=== PATIENT | male | born 1965 | race Caucasian/White ===

== ENCOUNTER 2019-01-13 19:10 | Emergency (ER) | payer MEDICAID ==
[2019-01-13] MEDS ORDERED: Take Home: Clindamycin HCl 150 MG Cap, 6 Cap Pack PO ONE (19:34)
--- NOTE | 2019-01-14 02:45 | EDM.PDOC ---
ED HPI GENERAL MEDICAL PROBLEM - General Chief Complaint: ENT Problem Stated Complaint: TOOTH Time Seen by Provider: 01/13/19 19:10 Source of Information: Reports: Patient History Limitations: Reports: No Limitations - History of Present Illness INITIAL COMMENTS - FREE TEXT/NARRATIVE: Pt. presents to ER with complaints of dental pain. He has a history of poor dentition and has pain to L lower premolar. Denies any facial swelling. No fever or chills. No nausea, vomiting, or headache. No difficulty with neck movement. No chest pain or shortness of breath. Pt. states that he does not routinely go to a dentist. 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 Left Lower Jaw Pain Score (Numeric/FACES): 4 - Related Data Allergies Allergy/AdvReac Type Severity Reaction Status Date / Time amoxicillin Allergy Facial Verified 01/13/19 19:33 Swelling Home Meds: Home Meds Lisinopril/Hydrochlorothiazide [Lisinopril-Hctz 20-25 mg Tab] 100 mg PO DAILY [History] Metoprolol Succinate 100 mg PO DAILY 01/13/19 [History] Venlafaxine [Effexor] 150 mg PO DAILY 01/13/19 [History] risperiDONE 4 mg PO DAILY 01/13/19 [History] Past Medical History - Past Health History Medical/Surgical History: Denies Medical/Surgical History Social & Family History - Tobacco Use Smoking Status *Q: Current Every Day Smoker Years of Tobacco use: 35 Packs/Tins Daily: 1 ED ROS GENERAL - Review of Systems Review Of Systems: See Below Constitutional: Reports: No Symptoms HEENT: Reports: Dental Pain Respiratory: Reports: No Symptoms Cardiovascular: Reports: No Symptoms Endocrine: Reports: No Symptoms GI/Abdominal: Reports: No Symptoms : Reports: No Symptoms Musculoskeletal: Reports: No Symptoms Skin: Reports: No Symptoms Neurological: Reports: No Symptoms Psychiatric: Reports: No Symptoms Hematologic/Lymphatic: Reports: No Symptoms Immunologic: Reports: No Symptoms ED EXAM, GENERAL - Physical Exam Exam: See Below Exam Limited By: No Limitations General Appearance: Alert, WD/WN, No Apparent Distress Nose: Normal Inspection, Normal Mucosa, No Blood Throat/Mouth: Normal Lips, Other (missing most of his teeth. Several teeth in area of pain are absent/filled with caries.) Neck: Normal Inspection, Supple, Non-Tender, Full Range of Motion Respiratory/Chest: No Respiratory Distress, Lungs Clear, Normal Breath Sounds, No Accessory Muscle Use, Chest Non-Tender Cardiovascular: Normal Peripheral Pulses, Regular Rate, Rhythm, No Edema, No JVD Extremities: Normal Inspection, Normal Range of Motion, Non-Tender, No Pedal Edema, Normal Capillary Refill Course - Vital Signs Last Recorded V/S: Last Vital Signs Temp 37.2 C 01/13/19 19:40 Pulse 105 H 01/13/19 19:40 Resp 14 01/13/19 19:40 BP 194/96 H 01/13/19 19:40 Pulse Ox 99 01/13/19 19:40 - Orders/Labs/Meds Meds: Medications Discontinued Medications Generic Name Dose Route Start Last Admin Trade Name Scottie PRN Reason Stop Dose Admin Clindamycin HCl 2 packet 01/13/19 19:34 01/13/19 19:43 Take Home: Clindamycin Hcl 150 Mg, 6 Cap Pack PO 01/13/19 19:35 2 packet ONETIME ONE Administration Departure - Departure Time of Disposition: 19:45 Disposition: Home, Self-Care 01 Condition: Good Clinical Impression: Dental infection - Discharge Information Instructions: Dental Abscess, [id number], Clindamycin capsules, Probiotics Referrals: Dawn Oleary, [Primary Care Provider] - Forms: ED Department Discharge Additional Instructions: clindamycin 150mg 2 tabs every 6 hours for 10 days Follow-up with dentist JUSTINO Aleve or ibuprofen as needed for discomfort - Assessment/Plan Plan: clindamycin 150mg 2 tabs every 6 hours for 10 days Follow-up with dentist JUSTINO Aleve or ibuprofen as needed for discomfort
== END 2019-01-13 19:45 | disposition home or self-care (01) ==
LOC: VM.ED 19:10
DX: K04.7 Periapical abscess without sinus (principal); F17.210 Nicotine dependence, cigarettes, uncomplicated; Z79.899 Other long term (current) drug therapy; Z88.1 Allergy status to other antibiotic agents
CPT/HCPCS: 99282; A9270

== ENCOUNTER 2021-09-27 12:51 | Emergency (ER) | payer BC, MEDICAID ==
[2021-09-27 13:40] LABS: ANION GAP 12.5 mmol/L (5-15); CHLORIDE,CL 104 mmol/L (98-107); SODIUM,NA 141 mmol/L (136-145)
== END 2021-09-27 14:39 | disposition home or self-care (01) ==
LOC: VM.ED 12:51
DX: R53.1 Weakness (principal); Z88.0 Allergy status to penicillin; Z79.82 Long term (current) use of aspirin; Z79.899 Other long term (current) drug therapy
CPT/HCPCS: 36415; 80048; 85025; 93005; 93010; 99284; 99285-25

== ENCOUNTER 2021-10-18 08:04 | Emergency (ER) | payer BC ==
[2021-10-18 08:48] LABS: CHLORIDE,CL 102 mmol/L (98-107); SODIUM,NA 137 mmol/L (136-145)
[2021-10-18 08:49] LABS: ANION GAP 10.4 mmol/L (5-15)
== END 2021-10-18 10:00 | disposition home or self-care (01) ==
LOC: VM.ED 08:04
DX: R53.1 Weakness (principal); E78.00 Pure hypercholesterolemia, unspecified; I10 Essential (primary) hypertension; Z88.0 Allergy status to penicillin; Z79.82 Long term (current) use of aspirin; Z79.899 Other long term (current) drug therapy
CPT/HCPCS: 36415; 71046; 80053; 81001; 83735; 84484; 85025; 86140; 93010; 99284; 99284-25

== ENCOUNTER 2022-01-03 07:21 | Emergency (ER) | payer BC ==
[2022-01-03 07:56] LABS: PTT,PARTIAL THROMBOPLSTIN TIME 23.4 SEC (20.5-30.9)
[2022-01-03 08:01] LABS: CHLORIDE,CL 106 mmol/L (98-107); SODIUM,NA 142 mmol/L (136-145)
[2022-01-03 08:02] LABS: ANION GAP 11.4 mmol/L (5-15)
[2022-01-03] MEDS: Ondansetron 4 MG/2 ML SDV IVPUSH ONE (08:55)
[2022-01-03] MEDS: Morphine 2 MG/ML SYRINGE IVPUSH ONE (08:58)
== END 2022-01-03 09:16 | disposition short-term general hospital (02) ==
LOC: VM.ED 07:21
DX: S11.81XA Laceration without foreign body of other specified part of neck, initial encounter (principal); C41.9 Malignant neoplasm of bone and articular cartilage, unspecified; E78.00 Pure hypercholesterolemia, unspecified; I10 Essential (primary) hypertension; Z88.0 Allergy status to penicillin; Z79.899 Other long term (current) drug therapy; Z23 Encounter for immunization; Z20.822 Contact with and (suspected) exposure to COVID-19; X78.1XXA Intentional self-harm by knife, initial encounter
CPT/HCPCS: 36415; 70490; 80053; 85025; 85610; 85730; 87635; 96374; 96375; 99285; J2270; J2405; U0002

== ENCOUNTER 2023-08-06 15:55 | Emergency (ER) | payer MEDICAID, MEDICARE ==
[2023-08-06] MEDS ORDERED: Sodium Chloride 0.9% 10 ML Syringe FLUSH PRN (15:59)
[2023-08-06 16:24] LABS: BASOPHILS ABSOLUTE AUTO 0.1 x10^3/uL (0.0-0.2); BASOPHILS PERCENT AUTO 1.2 % (0.2-1.2); EOSINOPHILS ABSOLUTE AUTO 0.4 x10^3/uL (0.0-0.5); EOSINOPHILS PERCENT AUTO 5.1 % (0.0-4.0); HEMATOCRIT 37.3 % (40.0-52.0); HEMOGLOBIN 12.4 g/dL (14.0-18.0); IMMATURE GRAN ABSOLUTE AUTO 0.02 x10^3/uL (0.00-0.07); LYMPHOCYTES ABSOLUTE AUTO 1.5 x10^3/uL (1.0-4.8); LYMPHOCYTES PERCENT AUTO 18.4 % (25.0-50.0); MEAN CORPUSCULAR HEMOGLOBIN 30.8 pg (26.0-32.0); MEAN CORPUSCULAR HGB CONC 33.2 g/dL (32.0-36.0); MEAN CORPUSCULAR VOLUME 92.8 fL (78.0-93.0); MONOCYTES ABSOLUTE AUTO 0.8 x10^3/uL (0.0-0.8); MONOCYTES PERCENT AUTO 9.8 % (2.0-11.0); NEUTROPHILS ABSOLUTE AUTO 5.3 x10^3/uL (1.8-7.7); NEUTROPHILS PERCENT AUTO 65.3 % (50.0-80.0); PLATELET COUNT,PLT 256 x10^3/uL (130-400); RED BLOOD CELL COUNT 4.02 x10^6/uL (4.5-6.0); WHITE BLOOD CELL COUNT,WBC 8.1 x10^3/uL (4.0-10.0)
[2023-08-06 16:42] LABS: LACTIC ACID 1.8 mmol/L (0.4-2.0)
[2023-08-06 16:44] LABS: INR 0.9 (0.9-1.1); PROTHROMBIN TIME 10.2 SEC (9.5-12.2); PTT,PARTIAL THROMBOPLSTIN TIME 26.5 SEC (23.6-33.6)
[2023-08-06 16:44] LABS: APPEARANCE,URINE CLEAR (CLEAR); BILIRUBIN,URINE NEGATIVE (NEGATIVE); COLOR,URINE DARK YELLOW (YELLOW); GLUCOSE,URINE NEGATIVE (NEGATIVE); KETONES,URINE NEGATIVE (NEGATIVE); LEUKOCYTE ESTERASE,URINE NEGATIVE (NEGATIVE); NITRITE,URINE NEGATIVE (NEGATIVE); OCCULT BLOOD,URINE NEGATIVE (NEGATIVE); PH,URINE 5.5 (5.0-8.0); PROTEIN,URINE 30 mg/dL (NEGATIVE); UROBILINOGEN,URINE 0.2 EU/dL (0.2)
[2023-08-06 16:46] LABS: BACTERIA,URINE OCCASIONAL /HPF (NOT SEEN); MUCUS,URINE OCCASIONAL /LPF (NOT SEEN); RBC,URINE 0-5 /HPF (NOT SEEN); WBC,URINE 0-5 /HPF (NOT SEEN)
[2023-08-06 16:48] LABS: AMPHETAMINES SCREEN, URINE NEGATIVE (NEGATIVE); BARBITURATE SCREEN,URINE NEGATIVE (NEGATIVE); BENZODIAZEPINES SCREEN,URINE POSITIVE (NEGATIVE); BUPRENORPHINE SCREEN,URINE NEGATIVE (NEGATIVE); COCAINE METABOLITES,URINE NEGATIVE (NEGATIVE); METHADONE SCREEN, URINE NEGATIVE (NEGATIVE); METHAMPHETAMINE SCREEN, URINE NEGATIVE (NEGATIVE); OXYCODONE SCREEN,URINE NEGATIVE (NEGATIVE); PCP SCREEN,URINE NEGATIVE (NEGATIVE); THC SCREEN,URINE 50 NG/ML NEGATIVE (NEGATIVE)
[2023-08-06 16:49] LABS: A/G RATIO 0.94; ALANINE AMINOTRANSFERASE,ALT 23 U/L (16-63); ALBUMIN 3.3 g/dL (3.4-5.0); ALKALINE PHOSPHATASE 111 U/L (46-116); ANION GAP 12.5 mmol/L (5-15); ASPARTATE AMNIOTRANSFERASE,AST 20 U/L (15-37); BILIRUBIN TOTAL 0.2 mg/dL (0.2-1.0); BLOOD UREA NITROGEN,BUN 13 mg/dL (7-18); C-REACTIVE PROTEIN 0.77 mg/dL (<=0.50); CALCIUM 9.2 mg/dL (8.5-10.1); CARBON DIOXIDE,CO2 31 mmol/L (21-32); CHLORIDE,CL 105 mmol/L (98-107); CREATININE 1.1 mg/dL (0.70-1.30); ESTIMATED GFR 77 mL/min (>=60); ETHANOL BLOOD MEDICAL < 3 mg/dL (0-3); GLUCOSE RANDOM 155 mg/dL (70-99); MAGNESIUM 1.9 mg/dL (1.8-2.4); POTASSIUM,K 3.5 mmol/L (3.5-5.1); PROTEIN TOTAL,TP 6.8 g/dL (6.4-8.2); SODIUM,NA 145 mmol/L (136-145); TSH ULTRASENSITIVE 2.868 uIU/mL (0.358-3.74)
[2023-08-06] MEDS ORDERED: Sodium Chloride 0.9% 1,000 ML IV ONE (17:01)
[2023-08-06] MEDS ORDERED: Iopamidol 755 Mg/ML 100 ML Bottle IVPUSH ONE (17:17)
== END 2023-08-06 19:40 ==
LOC: VM.ED 15:55
DX: R55 Syncope and collapse (principal); E86.0 Dehydration; I10 Essential (primary) hypertension; Z88.0 Allergy status to penicillin; Z88.8 Allergy status to other drugs, medicaments and biological substances; Z79.899 Other long term (current) drug therapy; W01.198A Fall on same level from slipping, tripping and stumbling with subsequent striking against other object, initial encounter
CPT/HCPCS: 36415; 70496; 71045; 80053; 80305-QW; 80307; 81001; 82140; 83605; 83735; 84443; 84484; 85025; 85610; 85730; 86140; 93005; 96360; 99285-25; J7030; Q9967

== ENCOUNTER 2023-08-26 10:02 | Emergency (ER) | payer MEDICARE, MEDICAID ==
[2023-08-26] MEDS ORDERED: Sodium Chloride 0.9% 10 ML Syringe FLUSH PRN (10:16)
[2023-08-26 10:30] LABS: BASOPHILS ABSOLUTE AUTO 0.1 x10^3/uL (0.0-0.2); BASOPHILS PERCENT AUTO 0.7 % (0.2-1.2); EOSINOPHILS ABSOLUTE AUTO 0.2 x10^3/uL (0.0-0.5); EOSINOPHILS PERCENT AUTO 2.1 % (0.0-4.0); HEMOGLOBIN 12.1 g/dL (14.0-18.0); IMMATURE GRAN ABSOLUTE AUTO 0.01 x10^3/uL (0.00-0.07); LYMPHOCYTES ABSOLUTE AUTO 0.8 x10^3/uL (1.0-4.8); LYMPHOCYTES PERCENT AUTO 9.9 % (25.0-50.0); MEAN CORPUSCULAR HEMOGLOBIN 29.8 pg (26.0-32.0); MEAN CORPUSCULAR HGB CONC 33.6 g/dL (32.0-36.0); MEAN CORPUSCULAR VOLUME 88.7 fL (78.0-93.0); MONOCYTES PERCENT AUTO 12.1 % (2.0-11.0); NEUTROPHILS ABSOLUTE AUTO 6.3 x10^3/uL (1.8-7.7); NEUTROPHILS PERCENT AUTO 75.1 % (50.0-80.0); PLATELET COUNT,PLT 185 x10^3/uL (130-400); RED BLOOD CELL COUNT 4.06 x10^6/uL (4.5-6.0); WHITE BLOOD CELL COUNT,WBC 8.4 x10^3/uL (4.0-10.0)
[2023-08-26] MEDS ORDERED: Acetaminophen 500 MG Tab PO ONE (10:44)
[2023-08-26 10:50] LABS: ALANINE AMINOTRANSFERASE,ALT 18 U/L (16-63); ALBUMIN 3.6 g/dL (3.4-5.0); ALKALINE PHOSPHATASE 112 U/L (46-116); ASPARTATE AMNIOTRANSFERASE,AST 17 U/L (15-37); BILIRUBIN TOTAL 0.6 mg/dL (0.2-1.0); BLOOD UREA NITROGEN,BUN 14 mg/dL (7-18); C-REACTIVE PROTEIN 5.63 mg/dL (<=0.50); CALCIUM 9.2 mg/dL (8.5-10.1); CARBON DIOXIDE,CO2 25 mmol/L (21-32); CHLORIDE,CL 104 mmol/L (98-107); GLUCOSE RANDOM 133 mg/dL (70-99); MAGNESIUM 1.7 mg/dL (1.8-2.4); POTASSIUM,K 3.2 mmol/L (3.5-5.1); PROTEIN TOTAL,TP 7.6 g/dL (6.4-8.2); SODIUM,NA 143 mmol/L (136-145)
[2023-08-26 10:51] LABS: ANION GAP 17.2 mmol/L (5-15); ESTIMATED GFR 86 mL/min (>=60)
[2023-08-26 10:53] LABS: LACTIC ACID 0.9 mmol/L (0.4-2.0); PROTHROMBIN TIME 11.1 SEC (9.5-12.2); PTT,PARTIAL THROMBOPLSTIN TIME 29.8 SEC (23.6-33.6)
[2023-08-26 10:55] LABS: APPEARANCE,URINE CLEAR (CLEAR); BILIRUBIN,URINE NEGATIVE (NEGATIVE); COLOR,URINE YELLOW (YELLOW); GLUCOSE,URINE NEGATIVE (NEGATIVE); KETONES,URINE 40 mg/dL (NEGATIVE); LEUKOCYTE ESTERASE,URINE NEGATIVE (NEGATIVE); NITRITE,URINE NEGATIVE (NEGATIVE); OCCULT BLOOD,URINE TRACE-INTACT (NEGATIVE); PROTEIN,URINE 30 mg/dL (NEGATIVE); UROBILINOGEN,URINE 0.2 EU/dL (0.2)
[2023-08-26 10:58] LABS: RBC,URINE 0-5 /HPF (NOT SEEN)
[2023-08-26 10:59] LABS: BACTERIA,URINE OCCASIONAL /HPF (NOT SEEN); MUCUS,URINE OCCASIONAL /LPF (NOT SEEN); WBC,URINE 0-5 /HPF (NOT SEEN)
[2023-08-26 11:20] LABS: CORONAVIRUS COVID-19 NAA POSITIVE (NEGATIVE); INFLUENZA A NAA NEGATIVE (NEGATIVE); INFLUENZA B NAA NEGATIVE (NEGATIVE); RESPIRATORY SYNCYTIAL VIR NAA NEGATIVE (NEGATIVE)
[2023-08-26] MEDS ORDERED: Iopamidol 755 Mg/ML 100 ML Bottle IVPUSH ONE (11:25)
[2023-08-26] MEDS ORDERED: Lactated Ringers 1,000 ML IV ONE (11:38)
[2023-08-26] MEDS ORDERED: Nirmatrelvir/Ritonavir 300 MG/100 MG Dose Pack PO SCH (12:15)
== END 2023-08-26 13:11 | disposition home or self-care (01) ==
LOC: VM.ED 10:02
DX: U07.1 COVID-19 (principal); I10 Essential (primary) hypertension; E78.00 Pure hypercholesterolemia, unspecified; Z79.899 Other long term (current) drug therapy; Z88.0 Allergy status to penicillin; Z88.1 Allergy status to other antibiotic agents; Z88.8 Allergy status to other drugs, medicaments and biological substances
CPT/HCPCS: 0241U; 36415; 71045; 71275; 80053; 81001; 83605; 83735; 85025; 85379; 85610; 85730; 86140; 87040; 93005; 96360; 99284-25; A9270-GY; J7120; Q9967

== ENCOUNTER 2023-08-31 17:39 | Observation (INO) | payer MEDICARE, MEDICAID ==
[2023-08-31] MEDS ORDERED: Sodium Chloride 0.9% 10 ML Syringe FLUSH PRN (17:47)
[2023-08-31 18:11] LABS: BASOPHILS ABSOLUTE AUTO 0.1 x10^3/uL (0.0-0.2); BASOPHILS PERCENT AUTO 0.9 % (0.2-1.2); EOSINOPHILS ABSOLUTE AUTO 0.5 x10^3/uL (0.0-0.5); EOSINOPHILS PERCENT AUTO 6.6 % (0.0-4.0); HEMATOCRIT 34.2 % (40.0-52.0); HEMOGLOBIN 11.4 g/dL (14.0-18.0); IMMATURE GRAN ABSOLUTE AUTO 0.01 x10^3/uL (0.00-0.07); LYMPHOCYTES ABSOLUTE AUTO 1.7 x10^3/uL (1.0-4.8); MEAN CORPUSCULAR HEMOGLOBIN 30.4 pg (26.0-32.0); MEAN CORPUSCULAR HGB CONC 33.3 g/dL (32.0-36.0); MEAN CORPUSCULAR VOLUME 91.2 fL (78.0-93.0); MONOCYTES ABSOLUTE AUTO 0.8 x10^3/uL (0.0-0.8); MONOCYTES PERCENT AUTO 11.3 % (2.0-11.0); NEUTROPHILS ABSOLUTE AUTO 3.9 x10^3/uL (1.8-7.7); NEUTROPHILS PERCENT AUTO 56.1 % (50.0-80.0); PLATELET COUNT,PLT 231 x10^3/uL (130-400); RED BLOOD CELL COUNT 3.75 x10^6/uL (4.5-6.0); WHITE BLOOD CELL COUNT,WBC 6.9 x10^3/uL (4.0-10.0)
[2023-08-31 18:27] LABS: PROTHROMBIN TIME 10.7 SEC (9.5-12.2)
[2023-08-31 18:27] LABS: AMPHETAMINES SCREEN, URINE NEGATIVE (NEGATIVE); BARBITURATE SCREEN,URINE NEGATIVE (NEGATIVE)
[2023-08-31 18:28] LABS: BENZODIAZEPINES SCREEN,URINE POSITIVE (NEGATIVE); BUPRENORPHINE SCREEN,URINE NEGATIVE (NEGATIVE); COCAINE METABOLITES,URINE NEGATIVE (NEGATIVE); METHADONE SCREEN, URINE NEGATIVE (NEGATIVE); METHAMPHETAMINE SCREEN, URINE NEGATIVE (NEGATIVE); OXYCODONE SCREEN,URINE NEGATIVE (NEGATIVE); PCP SCREEN,URINE NEGATIVE (NEGATIVE); THC SCREEN,URINE 50 NG/ML NEGATIVE (NEGATIVE)
[2023-08-31 18:31] LABS: LACTIC ACID 1.3 mmol/L (0.4-2.0)
[2023-08-31 18:38] LABS: A/G RATIO 0.82; ALANINE AMINOTRANSFERASE,ALT 48 U/L (16-63); ALBUMIN 3.2 g/dL (3.4-5.0); ALKALINE PHOSPHATASE 97 U/L (46-116); ASPARTATE AMNIOTRANSFERASE,AST 52 U/L (15-37); BILIRUBIN TOTAL 0.3 mg/dL (0.2-1.0); BLOOD UREA NITROGEN,BUN 24 mg/dL (7-18); C-REACTIVE PROTEIN 2.53 mg/dL (<=0.50); CALCIUM 9.2 mg/dL (8.5-10.1); CARBON DIOXIDE,CO2 30 mmol/L (21-32); CHLORIDE,CL 105 mmol/L (98-107); CREATININE 1.3 mg/dL (0.70-1.30); GLUCOSE RANDOM 95 mg/dL (70-99); MAGNESIUM 1.7 mg/dL (1.8-2.4); POTASSIUM,K 3.3 mmol/L (3.5-5.1); PROTEIN TOTAL,TP 7.1 g/dL (6.4-8.2); SODIUM,NA 145 mmol/L (136-145); TSH ULTRASENSITIVE 2.805 uIU/mL (0.358-3.74)
[2023-08-31 18:41] LABS: ANION GAP 13.3 mmol/L (5-15); ESTIMATED GFR 63 mL/min (>=60); ETHANOL BLOOD MEDICAL < 3 mg/dL (0-3)
[2023-09-01] MEDS ORDERED: Albuterol HFA 18 Gm Inhaler INH PRN (00:39)
[2023-09-01] MEDS: Gabapentin 300 MG Cap PO SCH ×2 (02:13→08:41)
[2023-09-01] MEDS: Calcium Carbonate 750 MG Tab.Chew PO SCH ×2 (08:42→14:21)
[2023-09-01] MEDS ORDERED: Cholecalciferol (Vitamin D3) 25 MCG Tab PO SCH (09:00)
[2023-09-01] MEDS ORDERED: LENALIDOMIDE 25 MG PO SCH (09:00)
[2023-09-01] MEDS ORDERED: Loratadine 10 MG Tab PO SCH (09:00)
[2023-09-01] MEDS ORDERED: Aspirin 81 MG Tab.EC PO SCH (09:00)
[2023-09-01] MEDS ORDERED: valACYclovir 1,000 MG Tab PO SCH (09:00)
[2023-09-01] MEDS ORDERED: Clopidogrel 75 MG Tab PO SCH (09:00)
[2023-09-01] MEDS ORDERED: Venlafaxine 75 MG Cap.ER PO SCH (09:00)
[2023-09-01] MEDS ORDERED: Tamsulosin 0.4 MG Cap.ER PO SCH (09:00)
[2023-09-01] MEDS ORDERED: Doxycycline Monohydrate 100 MG Cap PO SCH (09:00)
[2023-09-01] MEDS ORDERED: Metoprolol Succinate 50 MG Tab.ER PO SCH (09:00)
[2023-09-01] MEDS ORDERED: fentaNYL 100 MCG/HR Transdermal Patch TRDERM SCH (10:00)
[2023-09-01] MEDS ORDERED: Aspirin 81 MG Tab.Chew PO ONE (11:00)
[2023-09-01] MEDS ORDERED: Heparin Sodium 5,000 Units/ML Vial IVPUSH ONE (11:00)
[2023-09-01] MEDS ORDERED: Nitroglycerin 0.4 MG Tab.SL SL ONE (11:00)
[2023-09-01] MEDS ORDERED: Heparin Sodium/0.45% NaCl 25,000 UNITS/500 ML BAG IV STA (11:00)
[2023-09-01] MEDS ORDERED: Gabapentin 300 MG Cap PO SCH (13:00)
[2023-09-01] MEDS ORDERED: risperiDONE 1 MG Tab PO SCH (21:00)
[2023-09-01] MEDS ORDERED: OLANZapine 5 MG Tab PO SCH (21:00)
== END 2023-09-01 12:00 | disposition home or self-care (01) ==
LOC: VM.ED 17:39 → VM.MS 20:00
PROVIDERS: ADMIT Physician Assistant; ATTEND Physician Assistant
DX: R41.82 Altered mental status, unspecified (principal); J32.9 Chronic sinusitis, unspecified; Z88.0 Allergy status to penicillin; Z79.899 Other long term (current) drug therapy; Z79.51 Long term (current) use of inhaled steroids
CPT/HCPCS: 70450; 71045; 80053; 80305; 80307; 82140; 83605; 83735; 83930; 84443; 84484; 85025; 85610; 85730; 86140; 87040; 93005; 97161; 97165; 97530; 99285; A9270; G0378; 93010; 99223; 99239

== ENCOUNTER 2023-11-05 15:47 | Inpatient (IN) | payer MEDICARE, MEDICAID ==
[2023-11-05 16:27] LABS: BASOPHILS ABSOLUTE AUTO 0.1 x10^3/uL (0.0-0.2); BASOPHILS PERCENT AUTO 0.9 % (0.2-1.2); EOSINOPHILS ABSOLUTE AUTO 0.9 x10^3/uL (0.0-0.5); EOSINOPHILS PERCENT AUTO 10.6 % (0.0-4.0); HEMATOCRIT 37.5 % (40.0-52.0); HEMOGLOBIN 12.2 g/dL (14.0-18.0); IMMATURE GRAN ABSOLUTE AUTO 0.02 x10^3/uL (0.00-0.07); LYMPHOCYTES ABSOLUTE AUTO 1.1 x10^3/uL (1.0-4.8); LYMPHOCYTES PERCENT AUTO 12.4 % (25.0-50.0); MEAN CORPUSCULAR HEMOGLOBIN 29.8 pg (26.0-32.0); MEAN CORPUSCULAR HGB CONC 32.5 g/dL (32.0-36.0); MEAN CORPUSCULAR VOLUME 91.5 fL (78.0-93.0); MONOCYTES ABSOLUTE AUTO 0.9 x10^3/uL (0.0-0.8); MONOCYTES PERCENT AUTO 10.3 % (2.0-11.0); NEUTROPHILS ABSOLUTE AUTO 5.7 x10^3/uL (1.8-7.7); NEUTROPHILS PERCENT AUTO 65.6 % (50.0-80.0); PLATELET COUNT,PLT 199 x10^3/uL (130-400); WHITE BLOOD CELL COUNT,WBC 8.6 x10^3/uL (4.0-10.0)
[2023-11-05] MEDS: Lactated Ringers 1,000 ML IV ONE (16:31)
[2023-11-05] MEDS: Ondansetron 4 MG/2 ML SDV IVPUSH ONE (16:31)
[2023-11-05 16:43] LABS: A/G RATIO 0.91; ALANINE AMINOTRANSFERASE,ALT 12 U/L (16-63); ALBUMIN 3.2 g/dL (3.4-5.0); ALKALINE PHOSPHATASE 111 U/L (46-116); ASPARTATE AMNIOTRANSFERASE,AST 16 U/L (15-37); BILIRUBIN TOTAL 0.3 mg/dL (0.2-1.0); BLOOD UREA NITROGEN,BUN 24 mg/dL (7-18); CALCIUM 9.1 mg/dL (8.5-10.1); CARBON DIOXIDE,CO2 29 mmol/L (21-32); CHLORIDE,CL 108 mmol/L (98-107); CREATININE 1.6 mg/dL (0.70-1.30); GLUCOSE RANDOM 212 mg/dL (70-99); MAGNESIUM 1.7 mg/dL (1.8-2.4); POTASSIUM,K 3.1 mmol/L (3.5-5.1); PROTEIN TOTAL,TP 6.7 g/dL (6.4-8.2); SODIUM,NA 149 mmol/L (136-145)
[2023-11-05 16:44] LABS: ANION GAP 15.1 mmol/L (5-15); ESTIMATED GFR 49 mL/min (>=60)
[2023-11-05] MEDS ORDERED: Ondansetron 4 MG Tab.DIS PO PRN (19:16)
[2023-11-05] MEDS ORDERED: Haloperidol Lactate 5 MG/ML SDV IV PRN (19:22)
[2023-11-05] MEDS: D5 1/2 NS w/ 40 mEq/L KCl 1,000 ML IV SCH (19:59)
[2023-11-05] MEDS ORDERED: ClonazePAM 0.5 MG Tab PO SCH (21:00)
[2023-11-05] MEDS: Acetaminophen 650 MG Tab.ER PO SCH (21:22)
[2023-11-05] MEDS: Gabapentin 300 MG Cap PO SCH (21:22)
[2023-11-05] MEDS: traZODone 50 MG Tab PO SCH (21:23)
[2023-11-05] MEDS: Aspirin 81 MG Tab.EC PO SCH (21:23)
[2023-11-05] MEDS: OLANZapine 2.5 MG Tab PO SCH (21:23)
[2023-11-05] MEDS: Potassium Chloride 10 MEQ Tab.ER PO ONE (22:52)
[2023-11-05] MEDS: Clopidogrel 75 MG Tab PO SCH (22:52)
[2023-11-06 07:15] LABS: APPEARANCE,URINE CLEAR (CLEAR); BILIRUBIN,URINE NEGATIVE (NEGATIVE); COLOR,URINE YELLOW (YELLOW); GLUCOSE,URINE NEGATIVE (NEGATIVE); KETONES,URINE NEGATIVE (NEGATIVE); LEUKOCYTE ESTERASE,URINE NEGATIVE (NEGATIVE); NITRITE,URINE NEGATIVE (NEGATIVE); OCCULT BLOOD,URINE NEGATIVE (NEGATIVE); PH,URINE 5.5 (5.0-8.0); PROTEIN,URINE NEGATIVE (NEGATIVE); UROBILINOGEN,URINE 0.2 EU/dL (0.2)
[2023-11-06 07:38] LABS: BASOPHILS ABSOLUTE AUTO 0.1 x10^3/uL (0.0-0.2); BASOPHILS PERCENT AUTO 1.5 % (0.2-1.2); EOSINOPHILS ABSOLUTE AUTO 0.9 x10^3/uL (0.0-0.5); EOSINOPHILS PERCENT AUTO 15.7 % (0.0-4.0); HEMATOCRIT 37.3 % (40.0-52.0); HEMOGLOBIN 11.9 g/dL (14.0-18.0); IMMATURE GRAN ABSOLUTE AUTO 0.01 x10^3/uL (0.00-0.07); LYMPHOCYTES ABSOLUTE AUTO 1.2 x10^3/uL (1.0-4.8); LYMPHOCYTES PERCENT AUTO 20.4 % (25.0-50.0); MEAN CORPUSCULAR HEMOGLOBIN 29.3 pg (26.0-32.0); MEAN CORPUSCULAR HGB CONC 31.9 g/dL (32.0-36.0); MEAN CORPUSCULAR VOLUME 91.9 fL (78.0-93.0); MONOCYTES ABSOLUTE AUTO 0.8 x10^3/uL (0.0-0.8); MONOCYTES PERCENT AUTO 13.8 % (2.0-11.0); NEUTROPHILS ABSOLUTE AUTO 2.9 x10^3/uL (1.8-7.7); NEUTROPHILS PERCENT AUTO 48.4 % (50.0-80.0); PLATELET COUNT,PLT 184 x10^3/uL (130-400); RED BLOOD CELL COUNT 4.06 x10^6/uL (4.5-6.0); WHITE BLOOD CELL COUNT,WBC 5.9 x10^3/uL (4.0-10.0)
[2023-11-06 07:59] LABS: A/G RATIO 0.77; BILIRUBIN TOTAL 0.3 mg/dL (0.2-1.0); C-REACTIVE PROTEIN 1.53 mg/dL (<=0.50); CALCIUM 8.5 mg/dL (8.5-10.1); CREATININE 1.1 mg/dL (0.70-1.30); EST CRCL DRUG DOSING (CG) 62.12 mL/min; MAGNESIUM 1.7 mg/dL (1.8-2.4); POTASSIUM,K 4.2 mmol/L (3.5-5.1); PROTEIN TOTAL,TP 6.9 g/dL (6.4-8.2)
[2023-11-06 08:02] LABS: ANION GAP 10.2 mmol/L (5-15)
[2023-11-06] MEDS: valACYclovir 1,000 MG Tab PO SCH (09:30)
[2023-11-06] MEDS: ClonazePAM 0.5 MG Tab PO SCH (09:30)
[2023-11-06] MEDS: Venlafaxine 150 MG Cap.ER PO SCH (09:30)
[2023-11-06] MEDS: Gabapentin 300 MG Cap PO SCH ×2 (09:31→15:45)
[2023-11-06] MEDS: Metoprolol Succinate 50 MG Tab.ER PO SCH (09:32)
[2023-11-06] MEDS: Magnesium Sulfate/Water 2 GM in Premix Bag 1 BAG IV ONE (12:49)
[2023-11-06] MEDS: Tamsulosin 0.4 MG Cap.ER PO SCH (20:20)
[2023-11-07 06:53] LABS: BASOPHILS ABSOLUTE AUTO 0.1 x10^3/uL (0.0-0.2); EOSINOPHILS ABSOLUTE AUTO 0.8 x10^3/uL (0.0-0.5); EOSINOPHILS PERCENT AUTO 16.9 % (0.0-4.0); HEMATOCRIT 31.7 % (40.0-52.0); HEMOGLOBIN 10.4 g/dL (14.0-18.0); LYMPHOCYTES PERCENT AUTO 20.6 % (25.0-50.0); MEAN CORPUSCULAR HEMOGLOBIN 29.9 pg (26.0-32.0); MEAN CORPUSCULAR HGB CONC 32.8 g/dL (32.0-36.0); MEAN CORPUSCULAR VOLUME 91.1 fL (78.0-93.0); MONOCYTES ABSOLUTE AUTO 0.6 x10^3/uL (0.0-0.8); MONOCYTES PERCENT AUTO 13.3 % (2.0-11.0); NEUTROPHILS ABSOLUTE AUTO 2.3 x10^3/uL (1.8-7.7); NEUTROPHILS PERCENT AUTO 48.2 % (50.0-80.0); PLATELET COUNT,PLT 170 x10^3/uL (130-400); RED BLOOD CELL COUNT 3.48 x10^6/uL (4.5-6.0); WHITE BLOOD CELL COUNT,WBC 4.8 x10^3/uL (4.0-10.0)
[2023-11-07 07:23] LABS: A/G RATIO 0.89; ALBUMIN 2.5 g/dL (3.4-5.0); BILIRUBIN TOTAL 0.2 mg/dL (0.2-1.0); CALCIUM 7.9 mg/dL (8.5-10.1); CREATININE 0.9 mg/dL (0.70-1.30); EST CRCL DRUG DOSING (CG) 75.93 mL/min; POTASSIUM,K 4.4 mmol/L (3.5-5.1); PROTEIN TOTAL,TP 5.3 g/dL (6.4-8.2)
[2023-11-07 07:24] LABS: ANION GAP 12.4 mmol/L (5-15)
[2023-11-07] MEDS ORDERED: fentaNYL 100 MCG/HR Transdermal Patch TRDERM SCH (09:00)
[2023-11-07] MEDS: fentaNYL 50 MCG/HR Transdermal Patch TRDERM SCH (09:36)
[2023-11-07] MEDS: Acetaminophen 650 MG Tab.ER PO SCH (15:04)
[2023-11-07] MEDS: ClonazePAM 0.5 MG Tab PO SCH (15:05)
[2023-11-07] MEDS: Sodium Chloride 0.9% 10 ML Syringe FLUSH PRN (21:38)
[2023-11-08 06:41] LABS: BASOPHILS ABSOLUTE AUTO 0.1 x10^3/uL (0.0-0.2); BASOPHILS PERCENT AUTO 1.4 % (0.2-1.2); EOSINOPHILS PERCENT AUTO 14.8 % (0.0-4.0); HEMOGLOBIN 11.4 g/dL (14.0-18.0); IMMATURE GRAN ABSOLUTE AUTO 0.02 x10^3/uL (0.00-0.07); LYMPHOCYTES ABSOLUTE AUTO 1.1 x10^3/uL (1.0-4.8); LYMPHOCYTES PERCENT AUTO 16.2 % (25.0-50.0); MEAN CORPUSCULAR HEMOGLOBIN 29.8 pg (26.0-32.0); MEAN CORPUSCULAR HGB CONC 32.6 g/dL (32.0-36.0); MEAN CORPUSCULAR VOLUME 91.6 fL (78.0-93.0); MONOCYTES ABSOLUTE AUTO 0.8 x10^3/uL (0.0-0.8); NEUTROPHILS ABSOLUTE AUTO 3.5 x10^3/uL (1.8-7.7); NEUTROPHILS PERCENT AUTO 54.3 % (50.0-80.0); PLATELET COUNT,PLT 197 x10^3/uL (130-400); RED BLOOD CELL COUNT 3.82 x10^6/uL (4.5-6.0); WHITE BLOOD CELL COUNT,WBC 6.5 x10^3/uL (4.0-10.0)
[2023-11-08 07:02] LABS: A/G RATIO 0.94; ALBUMIN 3.1 g/dL (3.4-5.0); ANION GAP 9.5 mmol/L (5-15); BILIRUBIN TOTAL 0.2 mg/dL (0.2-1.0); CALCIUM 8.6 mg/dL (8.5-10.1); EST CRCL DRUG DOSING (CG) 68.33 mL/min; POTASSIUM,K 4.5 mmol/L (3.5-5.1); PROTEIN TOTAL,TP 6.4 g/dL (6.4-8.2)
[2023-11-08] MEDS: Docusate Sodium 100 MG Cap PO SCH (10:01)
[2023-11-08] MEDS: Polyethylene Glycol 3350 Powder 17 GM Packet PO SCH (10:01)
== END 2023-11-08 11:51 | disposition still patient (30) | DRG 841 ==
LOC: VM.ED 15:47 → VM.MS 17:19
PROVIDERS: ADMIT Nurse Practitioner Family; ATTEND Nurse Practitioner Family
DX: C90.02 Multiple myeloma in relapse (principal); C79.51 Secondary malignant neoplasm of bone; N17.9 Acute kidney failure, unspecified; F33.1 Major depressive disorder, recurrent, moderate; Z94.84 Stem cells transplant status; E87.0 Hyperosmolality and hypernatremia; D84.821 Immunodeficiency due to drugs; I10 Essential (primary) hypertension; F41.9 Anxiety disorder, unspecified; R53.1 Weakness; Z88.1 Allergy status to other antibiotic agents; E86.0 Dehydration; E87.6 Hypokalemia; E83.42 Hypomagnesemia; E78.2 Mixed hyperlipidemia; E03.9 Hypothyroidism, unspecified; G89.3 Neoplasm related pain (acute) (chronic); F51.01 Primary insomnia; Z86.16 Personal history of COVID-19; Z98.890 Other specified postprocedural states; Z88.0 Allergy status to penicillin; Z88.8 Allergy status to other drugs, medicaments and biological substances; Z79.899 Other long term (current) drug therapy; Z79.51 Long term (current) use of inhaled steroids; Z79.82 Long term (current) use of aspirin; Z79.02 Long term (current) use of antithrombotics/antiplatelets; Z91.51 Personal history of suicidal behavior; Z87.81 Personal history of (healed) traumatic fracture; Z87.820 Personal history of traumatic brain injury; Z97.8 Presence of other specified devices; I67.1 Cerebral aneurysm, nonruptured; Z95.828 Presence of other vascular implants and grafts; F10.11 Alcohol abuse, in remission; Z87.442 Personal history of urinary calculi; Z87.891 Personal history of nicotine dependence; S01.90XA Unspecified open wound of unspecified part of head, initial encounter; X58.XXXA Exposure to other specified factors, initial encounter
CPT/HCPCS: 36415; 51798; 71046; 80053; 81003; 82140; 83735; 85025; 86140; 87070; 96361; 96374; 97116-GP; 97162-GP; 97530-GP; 99284; 99285-25; A9270-GY; J1642; J2405; J3475; J3480; J3490; J7120